=== PATIENT | male | born 1995 | race Caucasian/White ===

== ENCOUNTER 2016-06-10 18:02 | Emergency (ER) | payer OTHER ==
[~2016-06-10] VITALS: Ht 170.2 cm; Wt 77.1 kg
[~2016-06-10 18:02] MED LIST: CONCERTA54 MG PO; DAILY VALUE1 EACH PO; MOTRIN600 MG PO
[2016-06-10] MEDS ORDERED: ZINC30 MG PO (19:58)
[2016-06-10] MEDS ORDERED: CO Q-1030 MG PO (19:58)
[2016-06-11] VITALS: BP 119/80
== END 2016-06-11 00:10 | disposition home or self-care (01) ==
LOC: EME 18:02
DX: F32.9 Major depressive disorder, single episode, unspecified (principal); F39 Unspecified mood [affective] disorder; F90.1 Attention-deficit hyperactivity disorder, predominantly hyperactive type; F31.9 Bipolar disorder, unspecified
CPT/HCPCS: 90839; 99281; 99284

== ENCOUNTER 2017-04-29 22:46 | Emergency (ER) | payer OTHER ==
[~2017-04-29] VITALS: Ht 170.2 cm; Wt 77.7 kg
[~2017-04-29 22:46] MED LIST changes: +CO Q-1030 MG PO; +ZINC30 MG PO
[2017-04-29 23:04] LABS: HEMATOCRIT 43.9 % (38.0-50.0); HEMOGLOBIN 15.3 G/DL (12.5-16.6); MCH 29.4 PG (29.0-34.0); MCHC 34.9 G/DL (30.0-36.0); MCV 84.4 FL (86-99); PLATELET COUNT 289 K/uL (156-360); RBC DIS.WIDTH-CV 12.3 % (11.8-14.6); RBC DIS.WIDTH-SD 37.5 % (39-53)
[2017-04-29 23:15] LABS: ALBUMIN 4.9 g/dL (3.2-4.8); CHLORIDE 105 mEq/L (99-109); POTASSIUM 3.6 mEq/L (3.7-5.4); SODIUM 143 mEq/L (136-147)
[2017-04-29 23:17] LABS: GLUCOSE 81 mg/dL (70-99)
[2017-04-29 23:18] LABS: TOTAL PROTEIN 7.6 g/dL (6.4-8.3)
[2017-04-29 23:19] LABS: TOTAL BILIRUBIN 2.1 mg/dL (0.0-1.0)
[2017-04-29 23:21] LABS: ALKALINE PHOSPHATASE 49 IU/L (3-129); CREATININE 1.1 mg/dL (0.6-1.3); GFR ESTIMATE (CALCULATED) > 59 mL/min/ (58.99-99999)
[2017-04-29 23:22] LABS: UREA NITROGEN (BUN) 12 mg/dL (9-23)
[2017-04-29 23:23] LABS: AST (GOT) 22 IU/L (2-34)
[2017-04-29 23:24] LABS: ALT (GPT) 17 IU/L (3-49)
[2017-04-30 01:26] LABS: LIPASE 19 U/L (1.0-51.0)
[2017-04-30] MEDS ORDERED: PEPCID20 MG PO (02:28)
[2017-04-30 03:04] VITALS: BP 123/78
== END 2017-04-30 03:05 | disposition home or self-care (01) ==
LOC: EME 22:46
DX: R10.13 Epigastric pain (principal); F90.9 Attention-deficit hyperactivity disorder, unspecified type
CPT/HCPCS: 76705; 80053; 81003; 83690; 85027; 87651 90; 99281; 99285

== ENCOUNTER 2017-10-09 16:39 | Emergency (ER) | payer OTHER ==
[~2017-10-09] VITALS: Ht 170.2 cm; Wt 69.6 kg
[~2017-10-09 16:39] MED LIST changes: +PEPCID20 MG PO
[2017-10-09 17:39] LABS: APPEARANCE SL.HAZY ((CLEAR)); BILIRUBIN MODERATE; BLOOD NEGATIVE; COLOR AMBER ((YELLOW)); GLUCOSE (STRIP) NEGATIVE; KETONES NEGATIVE; LEUKOCYTES NEGATIVE; NITRITE NEGATIVE; PROTEIN (STRIP) 100; SPECIFIC GRAVITY 1.031 (1.000-1.030)
[2017-10-09 17:51] LABS: ICTOTEST ND
[2017-10-09 18:19] LABS: HEMATOCRIT 42.6 % (38.0-50.0); HEMOGLOBIN 14.5 G/DL (12.5-16.6); MCH 29.3 PG (29.0-34.0); MCV 86.1 FL (86-99); PLATELET COUNT 252 K/uL (156-360); RBC DIS.WIDTH-SD 40.3 % (39-53); RED BLOOD COUNT 4.95 M/uL (4.00-5.50); WHITE BLOOD COUNT 6.3 K/uL (4.1-10.2)
[2017-10-09 18:25] LABS: AMPHETAMINE NEGATIVE (500 ng/mL); BARBITURATES NEGATIVE (200 ng/mL); BENZODIAZEPINES NEGATIVE (150 ng/mL); BUPRENORPHINE NEGATIVE (10 ng/mL); COCAINE NEGATIVE (150 ng/mL); METHADONE NEGATIVE (200 ng/mL); METHAMPHETAMINE NEGATIVE (500 ng/mL); OPIATES (MORPHINE) NEGATIVE (100 ng/mL); OXYCODONE NEGATIVE (100 ng/mL); PHENCYCLIDINE NEGATIVE (25 ng/mL); PROPOXYPHENE NEGATIVE (300 ng/mL); THC CANNABINOIDS NEGATIVE (50 ng/mL); TRICYCLIC ANTIDEPRESSANTS NEGATIVE (300 ng/mL)
[2017-10-09 18:50] LABS: ALBUMIN 4.2 G/DL (3.2-4.8); CHLORIDE 108 MEQ/L (99-109); POTASSIUM 3.6 MEQ/L (3.7-5.4); SODIUM 146 MEQ/L (136-147); TOTAL BILIRUBIN 1.7 MG/DL (0.0-1.0)
[2017-10-09 19:00] LABS: ACETAMINOPHEN (TYLENOL) < 10 MCG/ML (10-30); ALKALINE PHOSPHATASE 41 IU/L (3-129); ALT (GPT) 14 IU/L (3-49); AST (GOT) 23 IU/L (2-34); GFR ESTIMATE (CALCULATED) > 59 mL/min/ (58.99-99999); GLUCOSE 95 mg/dL (70-99); SALICYLATE < 1.0 MG/DL (15-30); SERUM ETHYL ALCOHOL < 10 mg/dL; TOTAL PROTEIN 6.3 G/DL (6.4-8.3); UREA NITROGEN (BUN) 6 mg/dL (9-23)
[2017-10-09 19:14] LABS: RED BLOOD CELLS NONE SEEN /HPF (0-5); WHITE BLOOD CELLS NONE SEEN /HPF (0-5)
[2017-10-09 19:15] LABS: BACTERIA RARE /HPF; EPITHELIAL CELLS NONE SEEN /HPF; MUCUS 4+ /LPF; UCUL ADDED? NO
[2017-10-09 20:53] VITALS: BP 100/62
== END 2017-10-09 20:55 | disposition home or self-care (01) ==
LOC: EME 16:39
PROVIDERS: Physician Assistant
DX: R45.4 Irritability and anger (principal); F90.1 Attention-deficit hyperactivity disorder, predominantly hyperactive type; F32.9 Major depressive disorder, single episode, unspecified; F43.10 Post-traumatic stress disorder, unspecified; R53.82 Chronic fatigue, unspecified; Z04.6 Encounter for general psychiatric examination, requested by authority
CPT/HCPCS: 80053; 81003; 85027; 90837; 99281; 99285; G0480